=== PATIENT | female | born 1960 | race Caucasian/White ===

== ENCOUNTER → 2017-12-25 15:52 | Outpatient (CLI) | payer SELFPAY ==
--- NOTE | 2017-12-25 15:59 | CT_ITS ---
STUDY: CT ABDOMEN AND PELVIS WITH CONTRAST REASON FOR EXAM: Female, 57 years old. Right lower quadrant pain x2 months RADIATION DOSAGE (If Supplied By Facility): CTDIvol = ( 9.21 ) mGy, DLP = ( 425.30 ) mGycm TECHNIQUE: Transaxial images were obtained from the dome of the diaphragm to the symphysis pubis with oral contrast. 100 ml of Isovue 300 contrast was administered. Sagittal and coronal images were reconstructed. Individualized dose optimization techniques were used for this CT. COMPARISON: None. FINDINGS: The visualized lung bases are unremarkable. The visualized portions of the heart are within normal limits. There is a hypodense nodular density of the posterior right hepatic lobe measuring 1.6 cm Normal gallbladder and extrahepatic biliary system. Normal spleen. Normal pancreas. Normal bilateral adrenal glands. Normal right kidney. Normal left kidney. Normal visualized stomach. Normal small intestine. There is circumferential wall thickening with possible mass of the mid ascending colon. The appendix is not identified with certainty. Normal abdominal aorta. Normal inferior vena cava. Normal retroperitoneum. Normal urinary bladder. The uterus is unremarkable. There is prominence of pelvic vasculature. There is a small fat-containing umbilical hernia. There is narrowing of the L5-S1 disc space. No lytic or blastic osseous changes are seen. CT/Abdomen/Pelvis WITH Contrast IMPRESSION: 1. There is wall thickening with possible mass of the mid ascending colon. Findings are suspicious for malignancy. Endoscopy is recommended. 2. There is a hypodense nodule of the posterior right hepatic lobe measuring 1.6 cm which is of unknown significance. Ultrasound correlation may be helpful. 3. There is prominence of pelvic vasculature. 4. There is a small fat-containing umbilical hernia. 5. There is narrowing of the L5-S1 disc space. Electronically Signed: Jose Devine MD at 22:00 EDT , Service support ,
== END ==
PROVIDERS: Family Provider Family Medicine; PCP Family Medicine; Visit Provider Internal Medicine Gastroenterology
DX: R10.31 Right lower quadrant pain (principal)
CPT/HCPCS: 74177; Q9967

== ENCOUNTER → 2018-01-20 08:49 | Outpatient (CLI) | payer MEDICAID, SELFPAY | PROVIDERS: Family Provider Family Medicine; PCP Family Medicine | DX: D3A.021 Benign carcinoid tumor of the cecum (principal) | CPT/HCPCS: 78801; 78803; 78804; A9572 ==

== ENCOUNTER → 2018-04-14 14:16 | Outpatient (CLI) | payer MEDICAID, SELFPAY ==
--- NOTE | 2018-04-14 14:20 | CT_ITS ---
STUDY: CT CHEST WITH CONTRAST REASON FOR EXAM: Female, 57 years old. 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 Individualized dose optimization techniques were used for this CT. COMPARISON: None. FINDINGS: The lungs are normal. There is no demonstrated pleural abnormality. There are NO infiltrates, nodules, masses, effusions or pneumothoraces. Normal heart and pericardium. Normal mediastinum. Normal hilar regions. Normal enhanced pulmonary arteries. Normal aorta arch and descending thoracic aorta. Normal osseous structures. There is no demonstrated abnormality of the visualized upper abdomen. CT/Chest WITH Contrast IMPRESSION: Normal enhanced CT Chest examination. Electronically Signed: Ez Segovia MD at 0:29 EST , Service support ,
[2018-04-14 14:36] LABS: Absolute Lymphocyte Count 1.55 X10^3/ul (0.83-4.51); Basophil# 0.02 X10^3/uL; Basophil% 0.4 % (0-1); Eosinophil# 0.06 X10^3/uL; Eosinophils% 1.2 % (0-5); Hematocrit 41.6 % (37-47); Hemoglobin 13.1 g/dl (12.0-15.0); Lymphocyte # 1.55 X10^3/ul (4.0); Lymphocyte % 31.9 % (19-41); Mean Corp Hgb Conc 31.5 g/gl (32-36); Mean Corpuscular Hgb 30.9 pg (27.0-32.0); Mean Corpuscular Volume 98.1 fL (81-99); Mean Platelet Vol. 9.4 fl (6.2-12.0); Monocyte# 0.28 X10^3/uL; Monocyte% 5.8 % (0-10); Neutrophil # 2.95 X10^3/uL (2.7-7.7); Neutrophil % 60.7 % (47-70); Platelet Count 222 K/mm3 (150-450); RBC Distribution Width SD 49.3 fl (35.1-43.9); Red Blood Count 4.24 M/mm3 (4.2-5.4); White Blood Count 4.9 K/mm3 (4.4-11.0)
[2018-04-14 14:38] LABS: POSITIVE COUNT NO; POSITIVE DIFFERENTIAL NO; POSITIVE MORPHOLOGY NO
[2018-04-14 14:52] LABS: ALB/GLOB Ratio 1.1 RATIO (0.9-2.4); AST(SGOT) 16 U/L (15-37); Alanine Aminotransfer ALT/SGPT 21 U/L (13-56); Alkaline Phosphatase 60 U/L (45-117); Anion Gap 6 (5-15); BUN 9 mg/dL (7-18); BUN/Creat Ratio 13.4 RATIO (10-20); Calcium,Total 9.1 mg/dL (8.5-10.1); Chloride 106 mmol/L (98-107); Creatinine, Serum 0.67 mg/dL (0.55-1.02); EST Glomerular Filtration Rate 96 mL/min (>60); Est Glom Filt Rate - Afr Amer 116 mL/min (>60); Globulin 3.6 g/dL (2.2-4.2); Glucose 85 mg/dL (74-106); Potassium 3.8 mmol/L (3.5-5.1); Protein, Total 7.6 g/dL (6.4-8.2); Sodium Level 140 mmol/L (136-145)
== END ==
PROVIDERS: Family Provider Family Medicine; PCP Family Medicine; Referring Provider Internal Medicine Medical Oncology; Visit Provider Internal Medicine Medical Oncology
DX: E34.0 Carcinoid syndrome (principal)
CPT/HCPCS: 36415; 71260; 80053; 85025; Q9967

== ENCOUNTER → 2018-10-15 | Outpatient (CLI) | payer MEDICAID, SELFPAY ==
--- NOTE | 2018-10-15 14:34 | CT_ITS ---
STUDY: CT ABDOMEN AND PELVIS WITH CONTRAST REASON FOR EXAM: Female, 58 years old. Partial colectomy. Cecal cancer. RADIATION DOSAGE (If Supplied By Facility): CTDIvol = ( 10.15 ) mGy, DLP = ( 359.68 ) mGycm TECHNIQUE: Transaxial images were obtained from the dome of the diaphragm to the symphysis pubis with oral contrast. 100 ml of Isovue 300 contrast was administered. Sagittal and coronal images were reconstructed. Individualized dose optimization techniques were used for this CT. COMPARISON: 12/25/2017 FINDINGS: The visualized lung bases are clear. The visualized portions of the heart and pericardium are within normal limits. The patient is status post cholecystectomy. There is a 1.9 cm hypodense lesion in the right lobe of the liver which is increased in size when compared with the prior exam. There are no new hepatic lesions The spleen is normal in size. The pancreas is within normal limits. The adrenal glands are within normal limits. There are no renal or ureteral stones. There is no hydronephrosis. There are no focal renal lesions. Normal visualized stomach. There is no bowel obstruction or inflammation. There are postsurgical changes from a right hemicolectomy. There is no evidence of residual or recurrent disease at the postsurgical site. The aorta is normal in caliber. There is no abdominal or pelvic free air, free fluid, fluid collection or lymphadenopathy. There are no destructive osseous lesions. CT/Abdomen/Pelvis WITH Contrast IMPRESSION: Status post right hemicolectomy. No evidence of residual or recurrent disease at the postsurgical site. Interval increase in size of the previously seen hypodense lesion in the right lobe of the liver which is suspicious for metastasis. Consider further evaluation with PET/CT. Electronically Signed: Frederic Klein, at 15:11 EDT Tel , Service support ,
[2018-10-15 14:55] LABS: CREATININE FINGERSTICK 0.9 mg/dL (0.55-1.02); EGFR FINGERSTICK > 60.0000 mL/min (>60)
== END | disposition home or self-care (01) ==
LOC: CT 14:33
PROVIDERS: Family Provider Family Medicine; PCP Family Medicine; Referring Provider Internal Medicine Medical Oncology; Visit Provider Internal Medicine Medical Oncology
DX: C18.0 Malignant neoplasm of cecum (principal)
CPT/HCPCS: 74177; Q9967

== ENCOUNTER → 2018-12-24 | Outpatient (CLI) | payer MEDICAID, SELFPAY ==
[2018-10-20 13:22] VITALS: BMI 20.5
--- NOTE | 2018-12-24 06:37 | CT_ITS ---
STUDY: CT ABDOMEN AND PELVIS WITH CONTRAST REASON FOR EXAM: Female, 58 years old. History of cecal carcinoma with a right hemicolectomy. Follow-up examination. RADIATION DOSAGE (If Supplied By Facility): CTDIvol = ( 6.93 ) mGy, DLP = ( 172.92 ) mGycm TECHNIQUE: Transaxial images were obtained from the dome of the diaphragm to the symphysis pubis with oral contrast. 100mL IV/Oral Isovue 300 was administered. Sagittal and coronal images were reconstructed. Individualized dose optimization techniques were used for this CT. COMPARISON: Comparison is made with prior study dated October 15, 2018. FINDINGS: Minimal increased markings at the lung bases suggest lobar linear atelectasis. The visualized portions of the heart are within normal limits. Once again, there is evidence of a 1.8 cm x 2 cm well-circumscribed hypodense rounded nodule in the inferior posterior aspect of the right lobe of the liver. This is unchanged. There are surgical clips in the gallbladder fossa consistent with a prior cholecystectomy. Normal spleen. Normal pancreas. Normal bilateral adrenal glands. Normal right kidney. Normal left kidney. Normal visualized stomach. Normal small intestine. The patient is status post appendectomy. Normal abdominal aorta. Normal inferior vena cava. Normal retroperitoneum. Normal urinary bladder. Enlarged fibroid uterus. Normal abdominal wall. Disc space narrowing and spondylosis at the L5-S1 level. CT/Abdomen/Pelvis WITH Contrast IMPRESSION: Stable examination demonstrating a 1.8 cm x 2 cm well circumscribed hypodense nodule in the inferior posterior aspect of the right lobe of the liver. Status post right hemicolectomy. Electronically Signed: Kasi Olivas, at 14:38 EDT , Service support ,
--- NOTE | 2018-12-24 06:37 | CT_ITS ---
STUDY: CT CHEST WITH CONTRAST REASON FOR EXAM: Female, 58 years old. Patient has a history of cecal carcinoma. Follow-up examination. RADIATION DOSAGE (If Supplied By Facility): CTDIvol = ( 6.93 ) mGy, DLP = ( 172.92 ) mGycm TECHNIQUE: Transaxial imaging was performed following intravenous administration of 100mL IV Isovue 300. Multiplanar coronal and sagittal images were reformatted. Individualized dose optimization techniques were used for this CT. COMPARISON: Comparison is made with prior examination dated April 14, 2018. FINDINGS: The lungs are normal. There is no demonstrated pleural abnormality. Normal heart and pericardium. Normal mediastinum. Normal hilar regions. Normal enhanced pulmonary arteries. Normal aorta arch and descending thoracic aorta. There are mild degenerative changes of the thoracic spine. There is no demonstrated abnormality of the visualized upper abdomen. CT/Chest WITH Contrast IMPRESSION: No acute abnormality is seen. Stable examination. Electronically Signed: Kasi Olivas, at 14:29 EDT , Service support ,
[2018-12-24 07:00] LABS: CREATININE FINGERSTICK 0.6 mg/dL (0.55-1.02)
== END | disposition home or self-care (01) ==
LOC: CT 06:35
PROVIDERS: Family Provider Family Medicine; PCP Family Medicine; Referring Provider Internal Medicine Medical Oncology; Visit Provider Internal Medicine Medical Oncology
DX: D3A.021 Benign carcinoid tumor of the cecum (principal); K76.9 Liver disease, unspecified
CPT/HCPCS: 71260; 74177; Q9967; A4216

== ENCOUNTER → 2019-01-11 | Outpatient (CLI) | payer MEDICAID, SELFPAY ==
[2018-12-28 10:23] VITALS: BMI 20.2
--- NOTE | 2019-01-11 09:22 | MRI_ITS ---
STUDY: MRI ABDOMEN WITH AND WITHOUT CONTRAST REASON FOR EXAM: Female, 58 years old. Liver mass, history colon cancer. TECHNIQUE: Standardized fat and water weighted pulse sequences were obtained in all 3 orthogonal planes post contrast administration. 10 IV Dotarem was administered for the contrast portion of the examination. COMPARISON: CT 12/24/2018 FINDINGS: The visualized lung bases are unremarkable. The visualized portions of the heart are within normal limits. 1.8 cm round peripherally enhancing lesion within the posterior segment the right lobe of the liver not consistent with a hepatic hemangioma. Differential diagnosis includes solitary metastasis, hepatocellular carcinoma, focal nodular hyperplasia, hepatic adenoma. There are surgical clips in the gallbladder fossa consistent with a prior cholecystectomy. Normal spleen. Normal pancreas. Normal bilateral adrenal glands. Normal right kidney. Normal left kidney. Normal visualized stomach. Normal small intestine. Normal colon. The appendix is visualized and appears normal. Normal abdominal aorta. Normal inferior vena cava. Normal retroperitoneum. Normal abdominal wall. Normal osseous structures. MRI/MRI Abd WITH and W/O Contrast IMPRESSION: 1.8 cm round peripherally enhancing lesion within the posterior segment the right lobe of the liver not consistent with a hepatic hemangioma. Differential diagnosis includes solitary metastasis, hepatocellular carcinoma, focal nodular hyperplasia, or hepatic adenoma. Electronically Signed: Luis Fernando Brice MD at 12:09 EDT Tel , Service support ,
== END | disposition home or self-care (01) ==
LOC: MRI 09:21
PROVIDERS: Family Provider Family Medicine; PCP Family Medicine; Referring Provider Internal Medicine Medical Oncology; Visit Provider Internal Medicine Medical Oncology
DX: C18.0 Malignant neoplasm of cecum (principal); K76.9 Liver disease, unspecified
CPT/HCPCS: 74183; A9575

== ENCOUNTER → 2019-01-18 | Outpatient (CLI) | payer MEDICAID, SELFPAY ==
[2019-01-13 13:21] VITALS: BMI 20.6
[2019-01-18] VITALS (10 sets, daily range): BP systolic 99–135; BP diastolic 38–68; PULSE 62–73; RESP 12–18; TEMP 36.4–36.6; O2SAT 99–100; BMI 20.1
--- NOTE | 2019-01-18 | ASPIGT_PTH ---
PATIENT: VIKAS CONNER LOC: CT U#:[id number] AGE/SX: 58/F ROOM: RE01/18/[address]: JAZMIN Mathews : 1960 BED: DIS: 01/18/2019 SPEC #: [id number] RECD: 01/18/19 09:30 STATUS: LJ ALAN #: [id number] PEBBLES: 01/18/19 00:[address]: Nancy Mercado NP DEPT: SURGICAL PATHOLOGY RECD BY: Karina Tenorio ENTERED: 01/18/19 12:16 SP TYPE: ASP RAD OTHR DR: Dr. 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 See comment. AM:christiano 01/20/19 COMMENT The specimen is evaluated at the time of biopsy by Dr. Berry. Immediate Evaluation = Positive for malignant cells consistent with carcinoma. Reference is made to the patient's previously history of right hemicolectomy in which a carcinoid tumor involving terminal ileum, appendix and cecum was identified with 8 out of 20 lymph nodes positive for metastatic carcinoma. Clinical correlation is necessary. Immunohistochemistry ([id number]) supports the above diagnosis. Case has been reviewed in consultation with Dr. Reddy who concurs with the above diagnosis. IDC:SJ MICROSCOPIC DESCRIPTION Slides are reviewed. GROSS DESCRIPTION Received in fixative is one container labeled with the patient's name and designated liver lesion biopsy. The specimen consists of three elongated fragments of light bullard soft tissue. Each core has an average length of 1 cm and a maximal diameter of <0.1 cm. The specimen is totally submitted in one cassette. / AM:christiano 01/18/19 TC:0 CPT: 52131, 49281
--- NOTE | 2019-01-18 | IMM_PTH ---
PATIENT: VIKAS CONNER LOC: CT U#:[id number] AGE/SX: 58/F ROOM: RE01/18/[address]: JAZMIN Mathews : 1960 BED: DIS: 01/18/2019 SPEC #: [id number] RECD: 01/19/19 12:37 STATUS: LJ REQ #: [id number] PEBBLES: 01/18/19 00:[address]: Nancy Mercado NP DEPT: IMMUNOHISTOCHEMISTRY RECD BY: Reina Hoang ENTERED: 01/19/19 12:40 SP TYPE: IMMUNO OTHR DR: Dr. Dexter Montes DO Tissues: Liver, NOS Procedures: Synapto (add) NAPSIN A (add) CD45 (add) CD56 (add) CEA (add) CHROMO (add) CK20 (add) CK7 (add) CK8 (add) KI-67 (add) P53 (add) TTF1 (add) NEUROFIL (add) Pankeratin (initial) NSE (add) PHYSICIAN & [address] [address] SPECIMEN INFORMATION: Tissue Source: Right lobe liver lesion Clinical Info: Liver lesion Specimen Number: [id number] CPT code: 91966, 06193 x14 METHODOLOGY: Deparaffinized sections of prefer/formalin-fixed tissue or PAP/DQ stained slides are incubated with monoclonal/polyclonal antibodies/oligonucleotide probes. Localization is made via biotin free immunoperoxidase method. Appropriate controls are performed and reacted as expected. Results on target cell population are indicated in the following table: RESULTS: ANTIBODY / CLONE RESULT AE1-3 (AE1/AE3/PCK26) positive CK7 (OV-TL12/30) negative CK8 (17bmnzR60) positive CK20 (KS20.8) negative CD45 (RP2/18) negative CD56 (123C3.D5) positive Chromo (LK2H10) positive Synapto (polyclonal) positive Neurofil (2F11) negative NSE Neuron Specific Enolase positive TTF-1 (8G7G3/1) negative Napsin A (Rabbit Polyclonal) negative Ki-67 (30-9) positive, 5% CEA (11-7/TF-3HB-1) negative P53 (DO-7) positive, 2% These tests were developed and their performance characteristics determined by [facility]. They may not have been cleared or approved by the U.S. Food and Drug Administration. The FDA has determined that such clearance or approval is not necessary. 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 AM:christiano 01/20/19 Case has been reviewed in consultation with Dr. Reddy who concurs with the above diagnosis. IDC:SJ
--- NOTE | 2019-01-18 07:55 | CT_ITS ---
PROCEDURE: CT DIRECTED CORE LIVER BIOPSY INDICATION: Female, 58 years old. Nodule in the inferior aspect of the right lobe of the liver. PHYSICIAN: Dr. Brendon GAMA CONSENT: Written informed consent was obtained having explained the risks, benefits and alternatives in detail with the patient who accepted the risks and agreed to proceed. Laboratory review and clinical assessment was performed. CONSCIOUS SEDATION PROTOCOL: The Drugs used were: 2 mg Versed, IV., and 50 mcg Fentanyl, IV. The sedation time was: 16 minutes. Conscious sedation was started at 9:31 AM and terminated at 9:47 AM. The conscious sedation protocol was independently monitored. RADIATION DOSAGE (If Supplied By Facility): CTDIvol = ( 16.6 ) mGy, DLP = ( 371.74 ) mGycm Individualized dose optimization techniques were used for this CT. TECHNIQUE: Using CT image guidance with image documentation, a suitable location in the inferior aspect of the right lobe of the liver was identified. Using a posterior approach, puncture of the liver was uneventful with an 18-gauge core needle system. 3, 18-gauge core samples were obtained, and submitted in formalin to the pathologist for further assessment. Followup CT scan revealed no distinct sequelae. CT/Biopsy/Inj or Needle Placement IMPRESSION: 1. CT directed core needle biopsy of the liver, using CT image guidance with image documentation as described. 2. Conscious Sedation protocol utilized with independent monitoring. Electronically Signed: Kasi Olivas, at 10:30 EDT , Service support ,
[2019-01-18 07:56] LABS: Absolute Lymphocyte Count 1.44 X10^3/uL (0.83-4.51); Absolute Neutrophil Count 2.3 X10^3/uL (2.0-7.7); Basophil# 0.04 X10^3/uL; Basophil% 0.9 % (0-1); Eosinophil# 0.13 X10^3/uL; Eosinophils% 3.1 % (0-5); Hematocrit 48.1 % (37-47); Hemoglobin 15.3 g/dL (12.0-15.0); Lymphocyte # 1.44 X10^3/ul (4.0); Mean Corp Hgb Conc 31.8 g/dL (32-36); Mean Corpuscular Hgb 31.9 pg (27.0-32.0); Mean Corpuscular Volume 100.2 fL (81-99); Mean Platelet Vol. 9.8 fl (6.2-12.0); Monocyte# 0.33 X10^3/uL; Monocyte% 7.8 % (0-10); NRBC Flagged by Analyzer 0 % (0-5); Neutrophil # 2.29 X10^3/uL (2.7-7.7); Platelet Count 169 K/mm3 (150-450); RBC Distribution Width CV 13.3 % (11.6-14.6); RBC Distribution Width SD 49.6 fl (35.1-43.9); White Blood Count 4.2 K/mm3 (4.4-11.0)
[2019-01-18 08:07] LABS: International Normalized Ratio 0.9; Prothrombin Time (Protime)PT. 12.1 SECONDS (11.7-14.9)
[2019-01-18 08:08] LABS: Partial Thromboplast Time 28.1 Seconds (24.1-36.2)
[2019-01-18] MEDS: fentaNYL 100 MCG/2 ML Ampul IV (09:31)
[2019-01-18] MEDS: Midazolam 2 MG/2 ML Syringe IV (09:31)
== END | disposition home or self-care (01) ==
PROVIDERS: Family Provider Family Medicine; PCP Family Medicine; Referring Provider Nurse Practitioner Family; Visit Provider Nurse Practitioner Family
DX: K76.9 Liver disease, unspecified (principal)
CPT/HCPCS: 47000; 36415; 77012; 85025; 85610; 85730; 88172; 88305; 88307; 88313; 88341; 88342; 99156; 99157; J7030; J7040